=== PATIENT | female | born 1985 | race Caucasian/White ===

== ENCOUNTER 2017-04-21 09:36 | Emergency (ER) | payer OTHER ==
[~2017-04-21] VITALS: Ht 165.1 cm; Wt 106.6 kg
[~2017-04-21 09:36] MED LIST: AMOXICILLIN500 MG PO; AMOXIL250 MG/5 M PO; AMOXIL500 MG PO; ANAPROX DS550 MG PO; AUGMENTIN 875 M1 TAB PO; BENADRYL50 MG PO; BENTYL10 MG PO; BENTYL20 MG PO; CATAFLAM50 MG PO; CIPRO250 MG PO; CLARITIN10 MG PO; CLEOCIN HCL150 MG PO; CLEOCIN150 MG PO; CLINDAMYCIN150 MG PO; COMBIVENT1 ARO IH; CORDROL20 MG PO; EES400 MG PO; FLAGYL500 MG PO; FLEXERIL10 MG PO; FLEXERIL5 MG PO; GABAPENTIN TAB600 MG PO; HYDROCODONE BIT1 T11; HYDROCODONE BIT1 T11 PO; IBU-8800 MG PO; IBU800 M1 PO; IBUPROFEN 30 M800 MG; LYRICA75 MG PO; MEDROL DOSEPAK4 MG PO; MOTRIN,RUFEN400 MG; MOTRIN800 MG PO; MYCOSTATIN100000 U/M PO; Motrin,Rufen800 MG PO; NAPROSYN500 MG PO; NKHM; NORCO 325 MG-51 TAB PO; NORFLEX100 MG PO; PARAFON FORTE500 MG PO; PEN-VK500 MG PO; PENICILLIN VK500 MG PO; PERIDEX 480 ML480 ML PO; PREDNICOT20 MG PO; PREVACID SOLUTA30 MG PO; Peridex 473 ML473 ML PO; ROBAXIN750 MG PO; SUDAFED60 MG PO; TRAMADOL HCL50 MG PO; TYLENOL W/CODE480 ML PO; ULTRAM50 MG PO; VICODIN 5/500 505 MG PO; VICODIN 500 MG-1 TAB PO; VOLTAREN50 M1 PO; ZITHROMAX Z PA250 MG PO
[2017-04-21] MEDS ORDERED: CYCLOBENZAPRINE10 MG PO (09:41)
[2017-04-21] MEDS ORDERED: IBU800 MG PO (09:54)
[2017-04-21] MEDS ORDERED: AUGMENTIN 500500 MG PO (09:54)
== END 2017-04-21 10:54 | disposition home or self-care (01) ==
LOC: ED 09:36
DX: K02.9 Dental caries, unspecified (principal); F17.200 Nicotine dependence, unspecified, uncomplicated; Z88.1 Allergy status to other antibiotic agents

== ENCOUNTER → 2020-01-30 | Outpatient (CLI) | payer OTHER ==
[~2020-01-30] MED LIST changes: +AUGMENTIN 500500 MG PO; +CYCLOBENZAPRINE10 MG PO; +CYCLOBENZAPRINE5 M3 PO; +IBU800 MG PO
== END | disposition home or self-care (01) ==
LOC: COVID19 15:44
DX: B34.9 Viral infection, unspecified (principal); Z03.818 Encounter for observation for suspected exposure to other biological agents ruled out; Z78.9 Other specified health status